=== PATIENT | male | born 1995 | race Caucasian/White ===

== ENCOUNTER 2017-06-02 01:11 | Emergency (ER) | payer SELFPAY ==
[~2017-06-02] VITALS: Ht 177.8 cm; Wt 84.3 kg
[~2017-06-02 01:11] MED LIST: CEPH500C3 PO; Z.0.NO CURRENT MEDS
[2017-06-02 01:17] VITALS: BP 136/82; PULSE 59; RESP 16; TEMP 97.6; O2SAT 99
--- NOTE | 2017-06-02 02:17 | PD ---
HPI Chief Complaint: Skin Problem Time Seen by Provider: 02:10 Travel History International Travel<30 days: No Contact w/Intl Traveler<30days: No Traveled to known affect area: No History of Present Illness HPI The patient is a 21-year-old right-hand dominant male that at 11 PM tonight had a treble hook stick into his left fifth finger, distal phalanx. He had trouble getting it out and came here. His last tetanus shot was about a year ago. [facility] Past Medical History Cancer: No Cardiovascular Problems: No Developmental Delay: No Diabetes: No Diminished Hearing: No Psychiatric: No Immunizations Current: Yes Migraines: No Renal Failure: Yes (KIDNEY DISEASE PER MOM NO FURTHER FOLLOW UP BEING DONE) Seizures: No Thyroid Disease: No Ulcer: No ?: Not Past Surgical History Pacemaker: No Other Surgery: Yes (RT 5TH FINGER SX PER PT.) Social History Alcohol Use: Yes Tobacco Use: No Substance Use: Yes (MARIJUANA) Allergies-Medications (Allergen,Severity, Reaction): Coded Allergies: ibuprofen (Unverified Adverse Reaction, Intermediate, VOMITING AND DIARRHEA, 05/25/17) Reported Meds & Prescriptions Reported Meds & Active Scripts Active Keflex (Cephalexin Monohydrate) 500 Mg Cap 500 Mg PO QID 10 Days Reported No Current Meds (Miscellaneous Medication) Misc Review of Systems Except as stated in HPI: all other systems reviewed are Neg Physical Exam Narrative GENERAL: Well-nourished, well-developed patient in no apparent distress except for the hook in his left fifth finger. His vital signs show temperature 97.6 with pulse rate of 59 but otherwise normal. SKIN: Focused skin assessment warm/dry. There is a treble hook stuck into the left fifth finger at the distal phalanx all early and dorsally. It did not go into the joint. HEAD: Normocephalic. EYES: No scleral icterus. No injection or drainage. NECK: Supple, trachea midline. No JVD or lymphadenopathy. CARDIOVASCULAR: Regular rate and rhythm without murmurs, gallops, or rubs. RESPIRATORY: Breath sounds equal bilaterally. No accessory muscle use. GASTROINTESTINAL: Abdomen soft, non-tender, nondistended. MUSCULOSKELETAL: No cyanosis, or edema. BACK: Nontender without obvious deformity. No CVA tenderness. Data Data Last Documented VS Vital Signs Date Time Temp Pulse Resp B/P (MAP) Pulse Ox O2 Delivery O2 Flow Rate FiO2 06/02/17 01:24 16 06/02/17 01:17 97.6 16 136/82 (100) 99 MDM Medical Decision Making Medical Screen Exam Complete: Yes Emergency Medical Condition: Yes Medical Record Reviewed: Yes Differential Diagnosis "Stuck into distal phalanx, stuck into the IP joint, involving tendons/nerves/ arteries Narrative Course The patient had the trouble hook into the distal phalanx dorsally and ulnarly of his left fifth finger. It did not involve any tendons, nerves, arteries or joint. Impression: [place] removed. Procedures Procedure Narrative Local infiltration with lidocaine was done and the hook was removed easily with a #11 blade. An incision was made only 2 mm long. The patient tolerated the procedure well. The hook was removed intact. Diagnosis Primary Impression: Foreign body of finger of left hand Additional Instructions: Return to the emergency department if you have any problems like infection. Keep your finger clean and dry. Put antibiotic ointment on and change the bandage at least daily. If you get the hand wet put a new bandage on with antibiotic ointment. Disposition: 01 DISCHARGE HOME Condition: Stable Braden Palmer MD Jun 02, 2017 02:17
== END 2017-06-02 02:37 | disposition home or self-care (01) ==
LOC: PHED 01:11
DX: S61.247A Puncture wound with foreign body of left little finger without damage to nail, initial encounter (principal); W45.8XXA Other foreign body or object entering through skin, initial encounter
CPT/HCPCS: 10120